=== PATIENT | male | born 1960 | race Caucasian/White ===

== ENCOUNTER → 2017-04-03 14:25 | Emergency (ER) | payer BC ==
[2017-04-03 15:15] VITALS: BP 133/84
== END | disposition left against medical advice (07) ==
LOC: ED 14:25
DX: Z91.81 History of falling (principal); Z53.21 Procedure and treatment not carried out due to patient leaving prior to being seen by health care provider

== ENCOUNTER 2017-04-04 06:04 | Emergency (ER) | payer BC ==
--- NOTE | 2017-04-04 07:18 | RAD ---
INDICATION: Left posterior knee pain after falling down a hill COMPARISON: Similar radiograph acquired January 07, 2015 TECHNIQUE: 4 view radiograph of the left knee. FINDINGS: The visualized bones are well-corticated and properly aligned. The joint spaces are properly maintained. There is no radiographic evidence of joint effusion. There is no acute fracture, dislocation or other focal bony abnormality. IMPRESSION: Normal knee radiograph as described above. If the patient's symptoms persist, follow-up imaging is recommended.
[2017-04-04] MEDS ORDERED: Acetaminophen TAB* 325 MG PO ONE (07:51)
[2017-04-04 08:48] VITALS: BP 144/78
--- NOTE | 2017-04-07 15:00 | ED ---
Lory Ruiz Thomas, scribed for Justyn Godfrey MD on 04/04/17 at 0729 . Lower Extremity - HPI Summary HPI Summary: The pt is a 56 y/o M presenting to the ED c/o L knee pain s/p a fall that occurred yesterday at 15:00. The patient was walking down a hill when he slipped on gravel. The patient feels like he hyperextended his knee. He has full ROM of the knee without distress. He is able to ambulate without difficulty. The pt rates the pain 2/10 and he describes the pain as aching. The pain is aggravated by movement and is alleviated by nothing. 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 Pt additionally c/o L knee swelling (onset yesterday). Pt denies head pain, head trauma, and back pain. - History of Current Complaint Chief Complaint: EDExtremityLower Stated Complaint: LEFT KNEE PAIN Time Seen by Provider: 04/04/17 07:21 Hx Obtained From: Patient Mechanism Of Injury: Fall From A Standing Position Onset of Pain: Days - fall yesterday at 15:00 Onset/Duration: Still Present Severity Currently: Mild Pain Intensity: 2 Pain Scale Used: 0-10 Numeric Timing: Constant Location: Is Discrete @ - L knee Associated Signs And Symptoms: Positive: Swelling - L knee. Negative: Other - NEGATIVE: head pain, back pain, head trauma Aggravating Factor(s): Movement Alleviating Factor(s): Nothing Able to Bear Weight: Yes - Allergies/Home Medications Allergies/Adverse Reactions: Allergies Allergy/AdvReac Type Severity Reaction Status Date / Time Trazodone Allergy Hives Verified 02/17/15 15:36 MUSHROOMS Allergy Unknown Unknown Uncoded 02/17/15 15:36 Reaction Details PMH/Surg Hx/FS Hx/Imm Hx Previously Healthy: No Respiratory History: Reports: Hx Asthma - Hx OF, NO Sx IN 2 YEARS, GI History: Reports: Hx Gastroesophageal Reflux Disease - CONTROLLED WITH DAILY MEDS Musculoskeletal History: Reports: Hx Arthritis - WRISTS, HANDS Sensory History: Comment Only: Hx Contacts or Glasses - glasses Opthamlomology History: Comment Only: Hx Contacts or Glasses - glasses Psychiatric History: Reports: Hx Anxiety, Hx Depression - ON DAILY MEDS - Surgical History Surgery Procedure, Year, and Place: YOUNG CHILD T&A. 1986 RIGHT [place]IR [place] 2000[place] NUMEROUS RIGHT KNEE SCOPES [facility] [place]. 2004 RIGHT & LEFT TOTAL HIP REPLACEMENTS [facility] Hx Anesthesia Reactions: No Infectious Disease History: Yes Infectious Disease History: Denies: Traveled Outside the [place] in Last 30 Days - Family History Known Family History: Positive: Other - POS: PUD (brother) - Social History Alcohol Use: None Substance Use Type: Reports: Marijuana Substance Use Comment - Amount & Last Used: daily Smoking Status (MU): Former Smoker Review of Systems Negative: Fever, Chills Negative: Erythema - eyes Negative: Sore Throat Negative: Chest Pain Negative: Shortness Of Breath, Cough Negative: Abdominal Pain, Vomiting, Nausea Negative: dysuria, hematuria Positive: Other - L knee pain s/p a fall, L knee swelling; NEGATIVE: head pain, back pain. Negative: Myalgia, Edema - legs Negative: Rash Neurological: Other - NEGATIVE: dizziness, head trauma All Other Systems Reviewed And Are Negative: Yes Physical Exam - Summary Physical Exam Summary: Constitutional: Well-developed, Well-nourished, Alert. (-) Distressed Skin: Warm, Dry HENT: Normocephalic; Atraumatic Eyes: Conjunctiva normal Neck: Musculoskeletal ROM normal neck. (-) JVD, (-) Stridor, (-) Tracheal deviation Cardio: Rhythm regular, rate normal, Heart sounds normal; Intact distal pulses; The pedal pulses are 2+ and symmetric. Radial pulses are 2+ and symmetric. (-) Murmur Pulmonary/Chest wall: Effort normal. (-) Respiratory distress, (-) Wheezes, (-) Rales Abd: Soft, (-) Tenderness, (-) Distension, (-) Guarding, (-) Rebound Musculoskeletal: (-) Edema. Mild knee effusion. Infrapatellar swelling. No bony tenderness. Rashad's test is negative. There is tenderness with the Anterior Drawer. Patellar tendon is intact. Lymph: (-) Cervical adenopathy Neuro: Alert, Oriented x3 Psych: Mood and affect Normal Triage Information Reviewed: Yes Vital Signs On Initial Exam: Initial Vitals Temp Pulse Resp BP Pulse Ox 97.8 F 66 16 130/78 97 04/04/17 06:10 04/04/17 06:10 04/04/17 06:10 04/04/17 06:10 04/04/17 06:10 Vital Signs Reviewed: Yes - [place] Coma Scale Coma Scale Total: 15 Diagnostics - Vital Signs Vital Signs Temp Pulse Resp BP Pulse Ox 04/04/17 06:10 97.8 F 66 16 130/78 97 - Laboratory Lab Statement: Any lab studies that have been ordered have been reviewed, and results considered in the medical decision making process. - Radiology XR Knee Xray Interpretation: No Acute Changes - normal radiograph of the knee. ED physician has reviewed this radiology report and agrees. Radiology Interpretation Completed By: Radiologist Lower Extremity Course/Dx - Course Assessment/Plan: The pt is a 56 y/o M presenting to the ED c/o L knee pain s/p a fall that occurred yesterday at 15:00. The patient was walking down a hill when he slipped on gravel. The patient feels like he hyperextended his knee. He has full ROM of the knee without distress. He is able to ambulate without difficulty. The pt rates the pain 2/10 and he describes the pain as aching. The pain is aggravated by movement and is alleviated by nothing. 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 Pt additionally c/o L knee swelling (onset yesterday). Pt denies head pain, head trauma, and back pain. Physical exam shows Mild knee effusion. Infrapatellar swelling. No bony tenderness. Rashad' s test is negative. There is tenderness with the Anterior Drawer. Patellar tendon is intact. XR Knee shows normal radiograph of the knee. ED physician has reviewed this radiology report and agrees. Patient is diagnosed with knee strain. Patient will be discharged home with follow up by PCP. Patient is agreeable to this plan. - Diagnoses Provider Diagnoses: Knee strain Discharge - Discharge Plan Condition: Stable Disposition: HOME Patient Education Materials: Knee Pain (ED) Forms: *Work Release Referrals: Nahun Garduno MD [Primary Care Provider] - 2 Days Additional Instructions: Follow up with Dr. Garduno in 2-3 days. Take Tylenol or Motrin for the pain. Return to the emergency department for any changing or worsening symptoms. The documentation as recorded by the Lory still Thomas accurately reflects the service I personally performed and the decisions made by , Justyn Godfrey MD.
== END 2017-04-04 08:46 | disposition home or self-care (01) ==
LOC: ED 06:04
DX: M25.562 Pain in left knee (principal); S83.92XA Sprain of unspecified site of left knee, initial encounter; W17.81XA Fall down embankment (hill), initial encounter; Y93.9 Activity, unspecified; Y92.9 Unspecified place or not applicable; Z87.891 Personal history of nicotine dependence
CPT/HCPCS: 99283; A9270-GY

== ENCOUNTER 2017-12-30 00:43 | Emergency (ER) | payer BC ==
[2017-12-30] MEDS ORDERED: Amoxicillin PO (*) 500 MG CAP PO ONE (02:43)
--- NOTE | 2017-12-30 02:46 | ED ---
Throat Pain/Nasal Congestion - HPI Summary HPI Summary: 57 male presents ER with complaints of dental pain that began this afternoon. Patient states he believes he has a dental abscess. Took ibuprofen prior to arrival which did help some pain. Admits to some swelling. Denies any drainage. States she has 3 teeth left and this was cracked and become infected. Denies any fever or chills. No trouble swallowing and no sore throat. No other complaints or concerns at this time. No significant past medical history. - History of Current Complaint Chief Complaint: EDDentalPain Time Seen by Provider: 12/30/17 01:24 Hx Obtained From: Patient Onset/Duration: Sudden Onset, Lasting Hours Severity: Mild Associated Signs And Symptoms: Positive: Negative Cough: None - Allergies/Home Medications Allergies/Adverse Reactions: Allergies Allergy/AdvReac Type Severity Reaction Status Date / Time mushroom Allergy Unknown Verified 12/30/17 00:51 Reaction Details trazodone Allergy Hives Verified 12/30/17 00:51 PMH/Surg Hx/FS Hx/Imm Hx Endocrine/Hematology History: Denies: Hx Diabetes Cardiovascular History: Denies: Hx Hypertension Respiratory History: Reports: Hx Asthma - Hx OF, NO Sx IN 2 YEARS, GI History: Reports: Hx Gastroesophageal Reflux Disease - CONTROLLED WITH DAILY MEDS Musculoskeletal History: Reports: Hx Arthritis - WRISTS, HANDS Sensory History: Comment Only: Hx Contacts or Glasses - glasses Opthamlomology History: Comment Only: Hx Contacts or Glasses - glasses Psychiatric History: Reports: Hx Anxiety, Hx Depression - ON DAILY MEDS - Surgical History Surgery Procedure, Year, and Place: YOUNG CHILD T&A. 1986 RIGHT K[place]EE [place]PAIR [place] NUMEROUS RIGHT KNEE SCOPES [facility] [place]. 2004 RIGHT & LEFT TOTAL HIP REPLACEMENTS [facility] [place] Hx Anesthesia Reactions: No - Immunization History Immunizations Up to Date: Yes Infectious Disease History: No Infectious Disease History: Denies: Traveled Outside the [place] in Last 30 Days - Family History Known Family History: Positive: Other - POS: PUD (brother) - Social History Alcohol Use: None Substance Use Type: Reports: Marijuana Substance Use Comment - Amount & Last Used: daily Smoking Status (MU): Former Smoker Review of Systems Constitutional: Negative Positive: Dental Pain Cardiovascular: Negative Respiratory: Negative Musculoskeletal: Negative Skin: Negative All Other Systems Reviewed And Are Negative: Yes Physical Exam Triage Information Reviewed: Yes Vital Signs On Initial Exam: Initial Vitals Temp Pulse Resp BP Pulse Ox 96.7 F 84 17 148/90 91 12/30/17 00:48 12/30/17 00:48 12/30/17 00:48 12/30/17 00:48 12/30/17 00:48 Vital Signs Reviewed: Yes Appearance: Positive: Well-Appearing, No Pain Distress, Well-Nourished Skin: Positive: Warm, Skin Color Reflects Adequate Perfusion, Dry. Negative: Cold, Cyanosis @, Pale, Erythema @ Head/Face: Positive: Normal Head/Face Inspection Eyes: Positive: Normal, EOMI, DAYANA, Conjunctiva Clear ENT: Positive: Hearing grossly normal, Pharynx normal, Uvula midline. Negative : TM dull, TM red, Tonsillar swelling, Tonsillar exudate Dental: Positive: Gross Decay/Caries @ - The 3 teeth present, Dental Fracture @ - Appears to be tooth #6 however difficult to tell as missing all teeth besides 3, Abscess @ - Small pea sized abscess palpated over the right frontal mandible. Negative: Percussion Tenderness @, Cervical Lymphadenopathy Neck: Positive: Supple, Nontender, No Lymphadenopathy Respiratory/Lung Sounds: Positive: Clear to Auscultation, Breath Sounds Present. Negative: Rales, Rhonchi, Wheezes Cardiovascular: Positive: Normal, RRR, Pulses are Symmetrical in both Upper and Lower Extremities. Negative: Murmur, Rub Bowel Sounds: Positive: Present Musculoskeletal: Positive: Normal, Strength/ROM Intact Neurological: Positive: Normal, Sensory/Motor Intact, Alert, Oriented to Person Place, Time Diagnostics - Vital Signs Vital Signs Temp Pulse Resp BP Pulse Ox 12/30/17 00:48 96.7 F 84 17 148/90 91 - Laboratory Lab Statement: Any lab studies that have been ordered have been reviewed, and results considered in the medical decision making process. EENT Course/Dx - Course Course Of Treatment: Continue ibuprofen. Appears to be dental infection / start of dental abscess. Continue fluids. Salt water gargles and good oral hygiene. Amoxicillin for infection. Given first dose while in ED. Follow-up with dentist/oral surgeon. No other complaints or concerns at this time. Warm compresses and cool compresses. Aware worsening signs and symptoms watch out for. Follow-up with PCP. - Differential Diagnoses Differential Diagnoses: Cellulitis, Dental Abscess, Dental Caries - Diagnoses Provider Diagnoses: Dental abscess Discharge - Sign-Out/Discharge Documenting (check all that apply): Discharge/Admit/Transfer - Discharge Plan Condition: Good Disposition: HOME Prescriptions: Amoxicillin PO (*) [Amoxicillin 500 MG CAP*] 500 mg PO Q12H #19 cap Patient Education Materials: Dental Abscess (ED) Referrals: Nahun Garduno MD [Primary Care Provider] - Additional Instructions: salt water gargles. good oral hygiene. take prescribed medication as directed. ibuprofen as needed for pain/inflammation. warm/cool compresses follow up with dentist/oral surgery. - Billing Disposition and Condition Condition: GOOD Disposition: Home
[2017-12-30 03:04] VITALS: BP 129/94
== END 2017-12-30 02:58 | disposition home or self-care (01) ==
LOC: ED 00:43
DX: K04.7 Periapical abscess without sinus (principal); K21.9 Gastro-esophageal reflux disease without esophagitis; Z79.899 Other long term (current) drug therapy; Z87.891 Personal history of nicotine dependence; Z88.8 Allergy status to other drugs, medicaments and biological substances
CPT/HCPCS: 99282; A9270-GY